=== PATIENT | female | born 1940 | race Two or more races ===

== ENCOUNTER 2018-05-16 08:54 | Inpatient (IN) | payer OTHER ==
[~2018-05-16] VITALS: Ht 152.4 cm; Wt 4.5 kg
[~2018-05-16 08:54] MED LIST: ASPIR 8181 MG PO; AVAPRO75 MG PO; CIPRO500 MG PO; INTESTINEX1 CA1 PO
== END 2018-05-18 19:42 | disposition home or self-care (01) | DRG 392 ==
LOC: ER 08:54 → MEDJ 17:55
PROC: BW25Y0Z Computerized Tomography (CT Scan) of Chest, Abdomen and Pelvis using Other Contrast, Unenhanced and Enhanced (ICD-10-PCS; principal; 2018-05-16)
DX: K57.32 Diverticulitis of large intestine without perforation or abscess without bleeding (principal); E86.0 Dehydration; I10 Essential (primary) hypertension

== ENCOUNTER 2018-05-22 06:30 | Emergency (ER) | payer OTHER ==
[~2018-05-22] VITALS: Ht 157.5 cm; Wt 45.4 kg
== END 2018-05-22 16:05 | disposition home or self-care (01) ==
LOC: ER 06:30
DX: R10.12 Left upper quadrant pain (principal); R42 Dizziness and giddiness

== ENCOUNTER 2018-07-24 09:55 | Outpatient (CLI) | payer OTHER | END 2018-07-24 10:01 | disposition home or self-care (01) | LOC: NUCLEAR 09:55 | DX: I70.213 Atherosclerosis of native arteries of extremities with intermittent claudication, bilateral legs (principal) ==

== ENCOUNTER 2019-08-05 10:43 | Emergency (ER) | payer OTHER ==
[~2019-08-05] VITALS: Ht 154.9 cm; Wt 46.3 kg
[2019-08-05] MEDS ORDERED: CALTRATE 600 +1 EACH (11:31)
[2019-08-05] MEDS ORDERED: MICARDIS40 MG (11:31)
[2019-08-05] MEDS ORDERED: CRESTOR10 MG (11:31)
== END 2019-08-05 15:44 | disposition home or self-care (01) ==
LOC: ER 10:43
DX: K52.89 Other specified noninfective gastroenteritis and colitis (principal)

== ENCOUNTER 2019-08-06 03:03 | Inpatient (IN) | payer OTHER ==
[~2019-08-06] VITALS: Ht 154.9 cm; Wt 46.7 kg
[~2019-08-06 03:03] MED LIST changes: +CALTRATE 600 +1 EACH; +CRESTOR10 MG; +MICARDIS40 MG
[2019-08-10] MEDS ORDERED: AMOX-CLAV 875-1 EACH PO (14:52)
== END 2019-08-10 16:31 | disposition home or self-care (01) | DRG 392 ==
LOC: ER 03:03 → MEDJ 16:42
PROVIDERS: ADMIT Internal Medicine
PROC: BW21Y0Z Computerized Tomography (CT Scan) of Abdomen and Pelvis using Other Contrast, Unenhanced and Enhanced (ICD-10-PCS; principal; 2019-08-06)
DX: K57.32 Diverticulitis of large intestine without perforation or abscess without bleeding (principal); I10 Essential (primary) hypertension; K57.30 Diverticulosis of large intestine without perforation or abscess without bleeding; E86.0 Dehydration; E87.8 Other disorders of electrolyte and fluid balance, not elsewhere classified

== ENCOUNTER 2019-12-14 13:02 | Outpatient (CLI) | payer OTHER ==
[~2019-12-14 13:02] MED LIST changes: +AMOX-CLAV 875-1 EACH PO
== END 2019-12-14 13:06 | disposition home or self-care (01) ==
LOC: RAD 13:02
DX: M17.0 Bilateral primary osteoarthritis of knee (principal); M54.6 Pain in thoracic spine; M54.2 Cervicalgia

== ENCOUNTER 2021-01-26 14:17 | Outpatient (CLI) | payer OTHER | END 2021-01-26 14:24 | disposition home or self-care (01) | LOC: RAD 14:17 | DX: M25.561 Pain in right knee (principal); M17.11 Unilateral primary osteoarthritis, right knee ==

== ENCOUNTER 2021-03-28 10:56 | Emergency (ER) | payer OTHER ==
[~2021-03-28] VITALS: Ht 157.5 cm; Wt 49.0 kg
[2021-03-28] MEDS ORDERED: NORVASC5 MG PO (11:35)
== END 2021-03-28 14:42 | disposition home or self-care (01) ==
LOC: ER 10:56
DX: R00.2 Palpitations (principal); F41.8 Other specified anxiety disorders

== ENCOUNTER 2021-07-07 14:28 | Outpatient (CLI) | payer OTHER ==
[~2021-07-07 14:28] MED LIST changes: +NORVASC5 MG PO
== END 2021-07-07 14:39 | disposition home or self-care (01) ==
LOC: RAD 14:28
PROVIDERS: ATTEND Orthopaedic Surgery
DX: M17.11 Unilateral primary osteoarthritis, right knee (principal); M79.641 Pain in right hand

== ENCOUNTER 2021-11-17 14:34 | Outpatient (CLI) | payer OTHER | END 2021-11-17 14:36 | disposition home or self-care (01) | LOC: RAD 14:34 | PROVIDERS: ATTEND Orthopaedic Surgery | DX: M17.0 Bilateral primary osteoarthritis of knee (principal) ==

== ENCOUNTER 2021-11-17 15:34 | Outpatient (CLI) | payer OTHER | END 2021-11-17 15:42 | disposition home or self-care (01) | LOC: LAB 15:34 | PROVIDERS: ATTEND Orthopaedic Surgery | DX: E55.9 Vitamin D deficiency, unspecified (principal) ==

== ENCOUNTER 2021-12-16 15:26 | Emergency (ER) | payer OTHER ==
[~2021-12-16] VITALS: Ht 157.5 cm; Wt 44.5 kg
== END 2021-12-17 10:48 | disposition home or self-care (01) ==
LOC: ER 15:26
DX: R11.2 Nausea with vomiting, unspecified (principal); E86.0 Dehydration; K57.32 Diverticulitis of large intestine without perforation or abscess without bleeding; I10 Essential (primary) hypertension; R10.32 Left lower quadrant pain

== ENCOUNTER 2022-03-20 11:32 | Emergency (ER) | payer OTHER ==
[~2022-03-20] VITALS: Ht 154.9 cm; Wt 42.2 kg
[2022-03-20] MEDS ORDERED: CRESTOR10 MG (11:52)
[2022-03-20] MEDS ORDERED: LEVSIN/SL0.125 MG PO (15:25)
[2022-03-20] MEDS ORDERED: DERMOCREM TOP (15:25)
[2022-03-20] MEDS ORDERED: INTESTINEX680 M1 PO (15:25)
[2022-03-20] MEDS ORDERED: DIPHENOXYLATE-1 EACH PO (15:56)
== END 2022-03-20 16:08 ==
LOC: ER 11:32
DX: K52.9 Noninfective gastroenteritis and colitis, unspecified (principal); K62.89 Other specified diseases of anus and rectum; Z20.822 Contact with and (suspected) exposure to COVID-19; I10 Essential (primary) hypertension

== ENCOUNTER 2022-04-22 14:42 | Emergency (ER) | payer OTHER ==
[~2022-04-22] VITALS: Ht 157.5 cm; Wt 47.2 kg
[~2022-04-22 14:42] MED LIST changes: +DERMOCREM TOP; +DIPHENOXYLATE-1 EACH PO; +INTESTINEX680 M1 PO; +LEVSIN/SL0.125 MG PO
== END 2022-04-22 19:34 | disposition home or self-care (01) ==
LOC: ER 14:42
DX: R07.89 Other chest pain (principal); I10 Essential (primary) hypertension; E78.00 Pure hypercholesterolemia, unspecified

== ENCOUNTER 2022-11-12 14:10 | Outpatient (CLI) | payer OTHER | END 2022-11-12 14:20 | disposition home or self-care (01) | LOC: RAD 14:10 | DX: M99.01 Segmental and somatic dysfunction of cervical region (principal); M99.02 Segmental and somatic dysfunction of thoracic region; M99.03 Segmental and somatic dysfunction of lumbar region; M99.04 Segmental and somatic dysfunction of sacral region; M99.05 Segmental and somatic dysfunction of pelvic region ==

== ENCOUNTER 2023-01-13 11:20 | Emergency (ER) | payer OTHER ==
[~2023-01-13] VITALS: Ht 152.4 cm; Wt 45.4 kg
[2023-01-13] MEDS ORDERED: CIDAFLEX TABLE1 EACH (12:03)
[2023-01-13] MEDS ORDERED: NIFEDIPINE20 MG (12:04)
== END 2023-01-13 15:52 | disposition home or self-care (01) ==
LOC: ER 11:20
DX: I10 Essential (primary) hypertension (principal); R53.1 Weakness

== ENCOUNTER 2023-01-23 16:52 | Emergency (ER) | payer OTHER ==
[~2023-01-23] VITALS: Ht 157.5 cm; Wt 44.0 kg
[~2023-01-23 16:52] MED LIST changes: +CIDAFLEX TABLE1 EACH; +NIFEDIPINE20 MG
[2023-01-23] MEDS ORDERED: ESCITALOPRAM OX10 MG PO (17:11)
[2023-01-23] MEDS ORDERED: METOPROLOL SUCC25 MG PO (17:11)
== END 2023-01-23 19:09 | disposition home or self-care (01) ==
LOC: ER 16:52
DX: R00.2 Palpitations (principal); I10 Essential (primary) hypertension

== ENCOUNTER → 2024-05-24 12:54 | Outpatient (CLI) | payer OTHER ==
[~2024-05-24 12:54] MED LIST changes: +ESCITALOPRAM OX10 MG PO; +METOPROLOL SUCC25 MG PO
== END | disposition home or self-care (01) ==
LOC: NUCLEAR 12:54
PROVIDERS: ATTEND Psychiatry & Neurology Clinical Neurophysiology
DX: F03.90 Unspecified dementia, unspecified severity, without behavioral disturbance, psychotic disturbance, mood disturbance, and anxiety (principal)
CPT/HCPCS: 78803; A9557

== ENCOUNTER 2024-07-19 18:02 | Emergency (ER) | payer OTHER ==
[~2024-07-19] VITALS: Ht 157.5 cm; Wt 56.2 kg
[2024-07-19] MEDS ORDERED: NAMENDA XR28 MG PO (18:09)
[2024-07-19] MEDS ORDERED: COZAAR100 MG PO (18:09)
[2024-07-19] MEDS ORDERED: ONDANSETRON HCL 2 MG/ML VIAL IV ONE (19:00)
[2024-07-19] MEDS ORDERED: FAMOtidine 10 MG/ML (4ML VIAL) IV ONE (19:00)
[2024-07-19] MEDS ORDERED: 0.9 % SODIUM CHLORIDE 1,000 ML IV ONE (19:15)
[2024-07-19 19:40] LABS: HEMATOCRIT 38.4 % (36.0-45.00); MEAN CORPUSCULAR HEMOGLOBIN 31.2 pg (27.00-32.0); PLATELET COUNT 353 K/uL (150-450); RED BLOOD COUNT 4.18 M/uL (4.00-6.00); RED CELL DISTRIBUTION WIDTH 15.3 % (11.5-14.5)
[2024-07-19 19:56] LABS: INR 1.05; PARTIAL THROMBOPLASTIN TIME 25.2 SECONDS (22.0-34.0); PROTHROMBIN TIME 11.4 SECONDS (9.0-11.5)
[2024-07-19 20:02] LABS: ALBUMIN 3.4 gm/dL (3.4-5.0); BILIRUBIN TOTAL 0.54 mg/dL (0.3-1.2); CALCIUM 9.7 mg/dL (8.5-10.1); CREATININE SERUM 0.85 mg/dL (0.55-1.02); GFR 63.87; GLOBULINA 4.3 G/DL (2.4-3.5); POTASSIUM 3.79 mEq/L (3.5-5.1); TOTAL PROTEIN 7.7 gm/dL (6.4-8.2)
[2024-07-19 20:51] LABS: PH,URINE 7.5 (5.0-8.0); URINE APPEARANCE Clear; URINE BILIRRUBIN Negative (NEGATIVE); URINE BLOOD Negative; URINE COLOR Yellow; URINE GLUCOSE Negative (NEGATIVE); URINE KETONE Negative (NEGATIVE); URINE LEUKOCYTE Negative; URINE NITRATE Negative; URINE PROTEIN Negative (NEGATIVE); URINE UROBILINOGEN 0.2 E.U./dl
[2024-07-19 20:55] LABS: URINE EPITHELIAL CELLS 1.6 uL (0.0-38.8); URINE WBC 3.3 uL (0.0-23.2)
[2024-07-19 21:01] LABS: URINE BACTERIA 3.7 uL (0.0-1933); URINE RBC 1.6 uL (0.0-20.8)
== END 2024-07-20 04:24 | disposition home or self-care (01) ==
LOC: ER 18:03
PROVIDERS: General Practice
DX: R14.3 Flatulence (principal); R14.1 Gas pain; R14.2 Eructation; R10.9 Unspecified abdominal pain; I10 Essential (primary) hypertension
CPT/HCPCS: 36415; 71045; 74177; 93005; 96365; 96366; 99284; J2405; J3490; J7030; Q9965